=== PATIENT | male | born 1960 | race African-American/Black ===

== ENCOUNTER 2022-10-02 00:13 | Emergency (ER) | payer OTHER ==
[~2022-10-02] VITALS: Ht 177.8 cm; Wt 101.2 kg
[2022-10-02 01:40] LABS: BASOPHILS % 0.5 % (0.0-2.0); EOSINOPHILS % 3.2 % (0.0-5.0); HEMATOCRIT. 43.4 % (42.0-52.0); HEMOGLOBIN. 14.2 g/dL (14.0-18.0); LYMPHOCYTES % 28.5 % (20.0-50.0); MEAN CORPUSCULAR HEMOGLOBIN 27.4 pg (28.0-32.0); MEAN CORPUSCULAR VOLUME 83.7 fL (80.0-94.0); MONOCYTES % 14.2 % (2.0-8.0); NEUTROPHILS % 53.6 % (40.0-76.0); PLATELET 234 x1000/uL (130-400); RED BLOOD CELL COUNT 5.19 mill/uL (4.7-6.1); RED CELL DISTRIBUTION WIDTH 14.4 % (11.6-14.6)
[2022-10-02 01:44] LABS: CHLORIDE 98 mEq/L (98-107)
[2022-10-02] MEDS ORDERED: IOHEXOL-350 100 ML BOTTLE ONE (01:45)
[2022-10-02 01:53] LABS: ETHANOL BLOOD < 10 mg/dL
[2022-10-02 01:59] LABS: CLARITY URINE CLEAR (CLEAR); COLOR URINE YELLOW (YELLOW); KETONES URINE NEGATIVE (NEGATIVE); LEUKOCYTE ESTERASE URINE NEGATIVE (NEGATIVE); NITRITE URINE NEGATIVE (NEGATIVE); OCCULT BLOOD URINE 2+ (NEGATIVE); PROTEIN URINE NEGATIVE (NEGATIVE); SPECIFIC GRAVITY URINE 1.038 (1.005-1.030)
[2022-10-02] MEDS ORDERED: ASPIRIN 325MG EC TABLET PO NR (02:00)
[2022-10-02 02:39] LABS: *AMPHETAMINES SCREEN URINE NEGATIVE (NEGATIVE); *BARBITURATES SCREEN URINE NEGATIVE (NEGATIVE); *BENZODIAZEPINES SCREEN URINE NEGATIVE (NEGATIVE); *COCAINE SCREEN URINE PRESUMTIVE POSITIVE (NEGATIVE); CANNABINOID URINE SCREEN NEGATIVE (NEGATIVE); METHADONE URINE SCREEN NEGATIVE (NEGATIVE); OPIATES URINE SCREEN NEGATIVE (NEGATIVE); PHENCYCLIDINE URINE SCREEN NEGATIVE (NEGATIVE)
[2022-10-02 09:06] VITALS: BP 145/90
== END 2022-10-02 09:47 | disposition short-term general hospital (02) ==
LOC: ER 00:13 → EDSEX 00:13 → ER 09:47
DX: I63.9 Cerebral infarction, unspecified (principal); I65.21 Occlusion and stenosis of right carotid artery; E11.9 Type 2 diabetes mellitus without complications
CPT/HCPCS: 36415; 70450; 70496; 70498; 71045; 80053; 80305; 80320; 81003; 82962; 85025; 93005; 99291; Q9967; Z7610; G0480

== ENCOUNTER 2024-10-31 03:54 | Emergency (ER) | payer OTHER ==
[~2024-10-31] VITALS: Ht 172.7 cm; Wt 86.0 kg
[2024-10-31 03:55] VITALS: O2SAT 99
[2024-10-31] MEDS: SODIUM CHLORIDE 0.9% 500 ML IV ONE (04:28)
[2024-10-31 04:53] LABS: CHLORIDE 103 mEq/L (98-107); POTASSIUM 3.6 mEq/L (3.5-5.1); SODIUM 141 mEq/L (136-145)
[2024-10-31 04:54] LABS: CARBON DIOXIDE 21 mEq/L (21-32)
[2024-10-31 04:55] LABS: CALCIUM 9.3 mg/dL (8.7-10.4)
[2024-10-31 04:59] LABS: CREATININE 1.6 mg/dL (0.6-1.3); GLUCOSE 125 mg/dL (70-105); UREA NITROGEN BLOOD 18 mg/dL (9-23)
[2024-10-31 05:10] LABS: ETHANOL BLOOD < 10 mg/dL (<10)
[2024-10-31 06:07] LABS: HEMATOCRIT. 42.3 % (42.0-52.0); MEAN CORPUSCULAR HEMOGLOBIN 27.6 pg (28.0-32.0); MEAN CORPUSCULAR VOLUME 83.4 fL (80.0-94.0); MEAN PLATELET VOLUME 8.7 fl (7.4-10.4); PLATELET 280 x1000/uL (130-400); RED BLOOD CELL COUNT 5.07 mill/uL (4.7-6.1); RED CELL DISTRIBUTION WIDTH 15.8 % (11.6-14.6); WHITE BLOOD COUNT 6.3 x1000/uL (4.5-11.0)
[2024-10-31 06:39] LABS: CLARITY URINE CLEAR (CLEAR); COLOR URINE YELLOW (YELLOW); GLUCOSE URINE 3+ (NEGATIVE); KETONES URINE NEGATIVE (NEGATIVE); LEUKOCYTE ESTERASE URINE NEGATIVE (NEGATIVE); NITRITE URINE NEGATIVE (NEGATIVE); OCCULT BLOOD URINE NEGATIVE (NEGATIVE); PH URINE 5.5 (4.5-8.0); PROTEIN URINE NEGATIVE (NEGATIVE)
[2024-10-31 06:54] LABS: DIFFERENTIAL COMMENT 1
[2024-10-31 06:55] LABS: RBC URINE 0-2 /hpf (0-2); SQUAMOUS EPITHELIAL CELL URINE NONE SEEN /lpf (RARE/1+)
[2024-10-31 07:02] LABS: BACTERIA URINE NONE SEEN; YEAST URINE Few budding yeasts
[2024-10-31 07:47] LABS: *AMPHETAMINES SCREEN URINE NEGATIVE (NEGATIVE); *BARBITURATES SCREEN URINE NEGATIVE (NEGATIVE); *BENZODIAZEPINES SCREEN URINE NEGATIVE (NEGATIVE); *COCAINE SCREEN URINE PRESUMPTIVE POSITIVE (NEGATIVE); CANNABINOID URINE SCREEN NEGATIVE (NEGATIVE); ECSTASY MDMA SCREEN URINE NEGATIVE (NEGATIVE); METHADONE URINE SCREEN NEGATIVE (NEGATIVE); OPIATES URINE SCREEN NEGATIVE (NEGATIVE); PHENCYCLIDINE URINE SCREEN PRESUMTIVE POSITIVE (NEGATIVE)
[2024-10-31 08:12] VITALS: BP 140/89; PULSE 81; RESP 20; TEMP 37.7; O2SAT 99
[2024-10-31 12:33] LABS: ANISOCYTOSIS 1+; PLATELET ESTIMATE NORMAL
== END 2024-10-31 08:24 | disposition home or self-care (01) ==
LOC: ER 03:54
DX: G40.909 Epilepsy, unspecified, not intractable, without status epilepticus (principal); E11.9 Type 2 diabetes mellitus without complications; I10 Essential (primary) hypertension; Z86.73 Personal history of transient ischemic attack (TIA), and cerebral infarction without residual deficits
CPT/HCPCS: 80305; 80048; 81003; 80320; 82962; 85025; 36415; 99284; J7040; G0480

== ENCOUNTER 2025-07-22 12:04 | Emergency (ER) | payer OTHER ==
[~2025-07-22] VITALS: Ht 170.2 cm; Wt 84.0 kg
[2025-07-22 12:06] VITALS: O2SAT 96
[2025-07-22 13:03] LABS: BASOPHILS % 0.8 % (0.0-2.0); EOSINOPHILS % 1.0 % (0.0-5.0); HEMATOCRIT. 37.7 % (42.0-52.0); HEMOGLOBIN. 12.3 g/dL (14.0-18.0); LYMPHOCYTES % 21.1 % (20.0-50.0); MEAN PLATELET VOLUME 8.0 fl (7.4-10.4); MONOCYTES % 11.5 % (2.0-8.0); NEUTROPHILS % 65.6 % (40.0-76.0); PLATELET 260 x1000/uL (130-400); RED BLOOD CELL COUNT 4.74 mill/uL (4.7-6.1); RED CELL DISTRIBUTION WIDTH 17.7 % (11.6-14.6)
[2025-07-22 13:20] LABS: CREATININE 1.4 mg/dL (0.6-1.3); ETHANOL BLOOD < 10 mg/dL (<10); UREA NITROGEN BLOOD 9 mg/dL (9-23)
[2025-07-22 13:21] LABS: INR 1.1; PROTEIN TOTAL 6.5 g/dL (6.0-8.3)
[2025-07-22 13:22] LABS: ASPARTATE AMINOTRANSFERASE 35 IU/L (<34); BILIRUBIN DIRECT 0.2 mg/dL (<=3.0); BILIRUBIN TOTAL 0.6 mg/dL (0.1-1.0)
[2025-07-22 13:23] LABS: TROPONIN I HIGH SENSITIVITY 13 ng/L (3.0-53)
[2025-07-22] MEDS: POTASSIUM CHLORIDE 20MEQ/PACKET PO SCH (16:05)
[2025-07-22] MEDS: LABETALOL 5MG/ML 4ML INJ IV ONE (16:05)
[2025-07-22 19:30] VITALS: BP 142/88; PULSE 75; RESP 12; TEMP 36.7; O2SAT 100
== END 2025-07-22 18:59 | disposition short-term general hospital (02) ==
LOC: ER 12:04 → CANBEDREQ 17:41 → ER 18:59
DX: R62.7 Adult failure to thrive (principal); R27.0 Ataxia, unspecified; I10 Essential (primary) hypertension; E11.9 Type 2 diabetes mellitus without complications; Z79.899 Other long term (current) drug therapy; Z98.890 Other specified postprocedural states
CPT/HCPCS: 80076; 80048; 80320; 83735; 85025; 85610; 84484; 36415; 71045; 70450; 93005; 96374; 99285; J3490; Z7610; A4606; G0480